=== PATIENT | male | born 1990 | race Two or more races ===

== ENCOUNTER 2016-10-16 12:55 | Emergency (ER) | payer SELFPAY ==
[~2016-10-16] VITALS: Ht 172.7 cm; Wt 81.6 kg
[2016-10-16 13:31] VITALS: BP 109/45
[2016-10-16] MEDS ORDERED: KETOROLAC TROMETH 60MG/2ML VIAL IM ONE (14:30)
[2016-10-16] MEDS ORDERED: methylPREDNISolone SOD SUCC 125 MG/2 ML VL IM ONE (14:30)
[2016-10-16] MEDS ORDERED: cefTRIAXone SOD 1,000 MG VL IM ONE (14:30)
== END 2016-10-16 15:14 | disposition home or self-care (01) ==
LOC: ER 13:08
DX: J03.90 Acute tonsillitis, unspecified (principal); R51 Headache
CPT/HCPCS: 96372; 99284; J0696; J1885; J2930